=== PATIENT | male | born 1960 | race Caucasian/White ===

== ENCOUNTER 2016-12-23 11:39 | Outpatient (CLI) | payer OTHER ==
[~2016-12-23 11:39] MED LIST: Sodium Chloride 0.9% 15 ML NEB ONE
== END 2016-12-23 11:40 | disposition home or self-care (01) ==
LOC: WCC 11:39
PROVIDERS: ATTEND Family Medicine
DX: T81.89XD Other complications of procedures, not elsewhere classified, subsequent encounter (principal)
CPT/HCPCS: 97605; A4218

== ENCOUNTER 2016-12-28 11:07 | Outpatient (CLI) | payer OTHER | END 2016-12-28 11:08 | disposition home or self-care (01) | LOC: WCC 11:07 | PROVIDERS: ATTEND Family Medicine | DX: T81.89XD Other complications of procedures, not elsewhere classified, subsequent encounter (principal) | CPT/HCPCS: 97606 ==

== ENCOUNTER 2016-12-30 10:35 | Outpatient (CLI) | payer OTHER | END 2016-12-30 10:36 | disposition home or self-care (01) | LOC: WCC 10:35 | PROVIDERS: ATTEND Family Medicine | DX: T81.89XD Other complications of procedures, not elsewhere classified, subsequent encounter (principal) | CPT/HCPCS: 97602 ==

== ENCOUNTER 2017-01-20 10:51 | Outpatient (CLI) | payer OTHER ==
[2017-01-20] MEDS ORDERED: Sodium Chloride 0.9% 15 ML NEB ONE (11:11)
--- NOTE | 2017-01-20 12:10 | PRG ---
DATE OF SERVICE: 01/20/2017 HISTORY: Mr. Maggie Rendon is a very pleasant 56-year-old gentleman who presents to [facility] for evaluation of a large wound of the right buttock subsequent to incision and drainage, and debridement of an ischiorectal and gluteal abscess. The patient underwent the preceding procedure on 11/30/[address] Ranulfo Toro. Negative pressure therapy was initiated during the patient's [facility] stay and upon discharge from [facility], the patient was referred to the Wound Center for assistance with dressing changes of the wound VAC. The patient was discharged to [facility] on ciprofloxacin and Augmentin. The patient has completed a course of negative pressure therapy and continues to perform wet-to-dry dressing changes for his right buttock wound. PHYSICAL EXAMINATION: VITAL SIGNS: Temperature 98.7, pulse 104, respirations 18, blood pressure 144/110. BACK: A wound of the right buttock is present which measures approximately 5.1 x 1.0 cm. The dimen sions of the wound at the time of the patient's visit on 01/06/2017 were approximately 6.5 x 1.6 cm. The wound is granulating. No purulent drainage is associated with the wound. No erythema of the skin surrounding the wound is present. No maceration of the skin of the periwound is noted. ASSESSMENT AND PLAN: 1. Wound of right buttock subsequent to incision and drainage and debridement of an ischiorectal an d gluteal abscess on 11/30/[address] Ranulfo Toro. Negative pressure therapy was initiated during t he patient's hospital stay subsequent to surgery, and upon discharge from [facility], the patient was referred to the Wound Center for assistance with dressing changes of the wo und VAC. The patient has completed a course of negative pressure therapy and wet to dry dressing ch anges for the right buttock wound will be continued. I will see Mr. Rendon again in 3 weeks. 2. Diabetes mellitus. Accu-Cheks will be obtained at the time of the patient's clinic visits. The patient has been reminded that for optimal wound healing, his blood glucoses should remain below 15 0. 3. Hypertension.
== END 2017-01-20 10:52 | disposition home or self-care (01) ==
LOC: WCC 10:51
PROVIDERS: ATTEND Family Medicine
DX: S31.819D Unspecified open wound of right buttock, subsequent encounter (principal); E11.9 Type 2 diabetes mellitus without complications; I10 Essential (primary) hypertension
CPT/HCPCS: 97602; A4218